=== PATIENT | female | born 1955 | race Two or more races ===

== ENCOUNTER 2024-05-15 11:12 | Emergency (ER) | payer MEDICARE, SELFPAY ==
[2024-05-15 11:12] VITALS: BMI 28.1
[2024-05-15 11:22] VITALS: BP 178/78; PULSE 54; RESP 18; TEMP 36.5; O2SAT 98; BMI 29.3
--- NOTE | 2024-05-15 12:16 | XR_ITS ---
Examination: AP chest single view Technique one AP portable upright chest single view Exam date and time: May 15, 2024 1231 hours Comparison August 28, 2023 INDICATIONS: Chronic hypertension shortness of breath today FINDINGS: Mild enlargement left ventricle No pneumonia or pulmonary edema Moderate osteopenia IMPRESSION: Mild enlargement left ventricle
--- NOTE | 2024-05-15 12:16 | XR_ITS ---
Examination: CT brain head without contrast. 2-D sagittal coronal reconstructions Date and time of exam:May 15, 2024 1346 hours INDICATIONS: Onset generalized head pain beginning today CTDI: vol (mGy):49.9 DLP: (mGycm):1074 Technique: Multiple CT axial sections of the brain have been obtained, 5 mm slice thickness. Contrast has not been administered. 2-D sagittal, coronal reconstructions have been obtained Low dose protocols were performed. One or more of the following dose reduction techniques were used; automated exposure control, adjustment of the mA and/or KV according to patient size, use of iterative reconstruction technique. Findings: No significant ventricular enlargement. Intra-axial or extra-axial hemorrhage density is not seen. No mass effect or midline shift Basal cisterns are not remarkable. Fourth ventricle is midline. Cranial vault intact. Impression: Negative for acute hemorrhage, mass effect or midline shift Advise clinical correlation follow-up accordingly
--- NOTE | 2024-05-15 12:19 | EDNOTE_ITS ---
ED General RME/HPI General Chief complaint: General Adult/Misc Complain Stated complaint: HTN Time Seen by Provider: 05/15/24 12:05 Arrival date/time: 05/15/24 11:12 RME / HPI RME / HPI narrative: 68-year-old female patient with significant history of hypertension, was brought in by family for evaluation regarding headache. Patient's been having headache since last night, associated with pain and numbness to the left side of the face and left eye twitching. Patient denies any slurring of speech denies any upper or lower extremity weakness. Patient also complained of elevated blood pressure, systolic above 180, and heart rate in the 40s. Denies any chest pain denies any other complaints or medications taken prior travel. Patient is ambulatory. Related Data Home Medications ?Medication ?Instructions ?Recorded ?Confirmed albuterol sulfate 90 mcg/actuation 2 puff inhalation Q6H PRN Wheezing 06/16/19 08/31/22 aerosol inhaler hydrochlorothiazide 12.5 mg tablet 12.5 mg PO QDAY 06/16/19 09/03/22 losartan 100 mg tablet 100 mg PO QDAY 06/16/19 09/03/22 lovastatin 40 mg tablet 40 mg PO QDAY 06/16/19 08/31/22 Previous Rx's ?Medication ?Instructions ?Recorded hydrocodone 10 mg-acetaminophen 1 tab PO Q6H PRN pain #28 tabs 09/03/22 325 mg tablet ibuprofen 800 mg tablet 800 mg PO Q8H #30 tabs 03/30/23 albuterol sulfate 90 mcg/actuation 2 puff inhalation Q6H PRN 05/20/23 aerosol inhaler (Ventolin HFA) shortness of breath or wheezing #8.5 grams benzonatate 100 mg capsule 100 mg PO TID #14 caps 05/20/23 Allergies Allergy/AdvReac Type Severity Reaction Status Date / Time sulfamethoxazole Allergy Swelling Verified 05/15/24 11:14 [From Bactrim] of Lip/Tongue/Throat trimethoprim [From Bactrim] Allergy Swelling Verified 05/15/24 11:14 of Lip/Tongue/Throat Review of Systems Review of Systems Narrative Review of Systems: Review of system reviewed and within normal limits except mentioned in HPI ED Exam Narrative Physical exam: VITAL SIGNS: Reviewed. GENERAL APPEARANCE: Alert and interactive, follows commands, no acute distress, HEAD AND FACE: Non-traumatic. ENT: PERRL, pink conjunctivitis, eyelid no trauma, Mucous membrane moist. NECK: Supple, nontender, no nuchal rigidity. CHEST: No tenderness, no crepitus, no paradoxical movement, no retractions. LUNGS: Clear, well ventilated, symmetric, no rales, no wheezing, no ronchi, no stridor, good breath sounds bilaterally. HEART: Regular rate, regular rhythm, no murmur, no gallops. ABDOMEN: Soft, positive bowel sounds, nondistended, no guarding, nontender, no rebound, no masses, RECTAL: Deferred. GENITAL: Deferred. NEUROLOGICAL: Gross motor function intact sensory function intact, Appropriate for age. MUSCULOSKELETAL: low back nontender, full range of motion. EXTREMITIES: Nontender, full range of motion. SKIN: Color pink, dry, no rash, no lacerations, no abrasions, no contusions. LYMPHATICS: Deferred. Course Quality Measures none Orders Category Date Time Status EKG (ED ONLY) *Do not use* NOW Care 05/15/24 12:[address] head/brain wo con Stat Exams 05/15/24 12:16 Completed EKG (ED Only) Stat Exams 05/15/24 12:19 Draft XR chest 1V Stat Exams 05/15/24 12:16 Completed B-Type Natriuretic Peptide Stat Lab 05/15/24 12:30 Completed CBC Stat Lab 05/15/24 12:30 Completed Comprehensive Metabolic Panel Stat Lab 05/15/24 12:30 Completed Partial Thromboplastin Time Stat Lab 05/15/24 12:30 Completed Troponin I Stat Lab 05/15/24 12:30 Completed Acetaminophen Tab [Tylenol ES Tab] Med 05/15/24 12:16 Discontinued 1,000 mg PO X1 ONE hydrALAZINE HCL [Apresoline] Med 05/15/24 14:07 Discontinued 50 mg PO X1 ONE Vital Signs Vital signs: Vital Signs Temperature 97.7 F 05/15/24 11:22 Pulse Rate 54 L 05/15/24 11:22 Respiratory Rate 18 05/15/24 11:22 Blood Pressure 178/78 H 05/15/24 11:22 Pulse Oximetry (%) 98 05/15/24 11:22 [facility] Patient data External records reviewed:: None Clinical information provided by:: patient and family Social determinants that could affect healthcare access:: none Patient has the following chronic illnesses:: Hypertension How is presenting disease/condition affected by chronic disease/condition?: e xacerbated by Evaluation data The following diagnostics were reviewed and interpreted by me:: lab results, radiology exam(s) and EKG tracing(s) Lab and/or radiology exams considered but not ordered:: None Interpretation Summary: EKG showed sinus bradycardia, ventricular rate of 45 bpm, ST segment elevation depression noted. Laboratory workup all came back normal troponin is normal CT scan head came unremarkable. I personally reviewed and interpreted the x-ray of this patient. There is no acute abnormalities found, no infiltrates no pneumothorax no hemothorax normal chest x-ray. Review of other structures was without significant abnormal findings also. I additionally reviewed the radiologist report and agree with the interpretation. Medications Medications considered but not ordered:: None Medication administrations:: Medication Administration History Discontinued Medications Acetaminophen (Acetaminophen 500 Mg Tablet) 1,000 mg PO X1 ONE Stop: 05/15/24 12:17 Last Admin: 05/15/24 12:38 Dose: 1,000 mg Documented By: EASTON Hydralazine HCl (Hydralazine Hcl 25 Mg Tablet) 50 mg PO X1 ONE Stop: 05/15/24 14:08 Last Admin: 05/15/24 14:27 Dose: 50 mg Documented By: XANDER Tylenol, hydralazine Consultations Consultation(s) initiated? (list below): No Diagnosis Differential Diagnosis ED Complaint MDM: Stress at home, hypertension, headache Most likely diagnosis given after review of the tests above:: Stress at home, hypertension Admission Indicated Admission indicated?: not indicated Explain why admission is indicated or not indicated:: None Admission Request Was there a request for admission?: No Disposition Plan Disposition Plan: Discharge Discharge Attestation Discharge Attestation: The patient and all family members were given an opportunity to ask questions and understood the discharge instructions. Discharge instructions specifically effects, indications for sooner follow up or return to the emergency department, and the expected course of current diagnosis. Patient condition: Stable Medical Decision Making MDM Narrative MDM Narrative: 68-year-old female patient with significant history of hypertension, was brought in by family for evaluation regarding headache. Patient's been having headache since last night, associated with pain and numbness to the left side of the face and left eye twitching. Patient denies any slurring of speech denies any upper or lower extremity weakness. Patient also complained of elevated blood pressure, systolic above 180, and heart rate in the 40s. Denies any chest pain denies any other complaints or medications taken prior travel. Patient is ambulatory. Patient's cardiac workup will came back normal, EKG also came back unremarkable except for sinus bradycardia, ventricular rate of 45 bpm, no ST segment elevation depression noted. CT scan of the head came back unremarkable chest x- ray came back unremarkable patient's received Tylenol and hydralazine in the emergency room, latest blood pressure was noted to be 165/54 heart rate of 78. Patient told me that her symptoms is totally gone. Differential Diagnosis Differential Diagnosis: Stress at home, hypertension, headache Lab Data 05/15/24 12:30 05/15/24 12:30 Labs: Lab Results 05/15/24 Range/Units 12:30 WBC 6.6 (3.6-11.0) Thou/mm3 RBC 3.99 L (4.00-5.20) Miln/mm3 Hgb 12.3 (12.0-16.0) g/dL Hct 37.2 (36.0-46.0) % MCV 93 (80-100) fL MCH 30.8 (25.0-35.0) pg MCHC 33.1 (31.0-37.0) g/dl RDW Std Deviation 43.0 (36.4-46.3) fL Plt Count 188 (140-440) Thou/mm3 Neut % (Auto) 50 (37-80) % Lymph % (Auto) 40 (10-50) % [place] % (Auto) 7 (0-12) % Eos % (Auto) 2 (0-10) % Baso % (Auto) 0 (0-2.5) % Neut # (Auto) 3.3 (1.8-7.7) Thou/mm3 Lymph # (Auto) 2.6 (1.0-4.8) Thou/mm3 [place] # (Auto) 0.5 (0.0-0.8) Thou/mm3 Eos # (Auto) 0.2 (0.0-0.5) Thou/mm3 Baso # (Auto) 0.0 (0.0-0.2) Thou/mm3 Immature Gran # (Auto) 0.01 H (0.00-0.00) Thou/mm3 Absolute Nucleated RBC 0.00 (0.00-0.00) Thou/mm3 Immature Gran % 0 (0-0) % Nucleated RBC % 0 (0) /100 WBC APTT 27.2 (22.0-36.0) Seconds Sodium 134 L (136-145) mMol/L Potassium 3.5 (3.4-5.1) mMol/L Chloride 102 (98-107) mMol/L Carbon Dioxide 26.8 (20.0-31.0) mMol/L Anion Gap 5 L (7-16) BUN 14 (9-23) mg/dL Creatinine 0.8 (0.6-1.3) mg/dL Estim Creat Clear Calc 68.4 (>60) mL/min eGFR > 60 (60 - ) See Note BUN/Creatinine Ratio 18 (12-20) Ratio Glucose 99 (74-106) mg/dL Calculated Osmolality 268 L (275-295) Calcium 9.4 (8.3-10.6) mg/dL Corrected Calcium 9.4 (8.5-10.1) mg/dL Total Bilirubin 0.5 (0.3-1.2) mg/dL AST 19 (0-34) U/L ALT 10 (10-49) U/L Alkaline Phosphatase 82 (46-116) U/L Troponin I < 0.002 (0.0-0.045) ng/mL B-Natriuretic Peptide 86 (0-100) pg/mL Total Protein 7.4 (5.7-8.2) gm/dL Albumin 4.5 (3.4-4.8) gm/dL Globulin 2.9 (2.3-3.5) gm/dL Albumin/Globulin Ratio 1.6 (1.2-2.2) Discharge Plan Plan Patient Disposition: HOME (Self Care) Disposition Comment: stable Prescriptions/Referrals Prescriptions/Med Rec: No Action lovastatin 40 mg Tablet 40 mg PO QDAY losartan 100 mg Tablet 100 mg PO QDAY hydrochlorothiazide 12.5 mg Tablet 12.5 mg PO QDAY albuterol sulfate 90 mcg/actuation Hfa Aerosol Inhaler 2 puff INHALATION Q6H PRN (Reason: Wheezing) hydrocodone-acetaminophen 10-325 mg tablet 1 tab PO Q6H MDD 4 PRN (Reason: pain) Qty: 28 0RF ibuprofen 800 mg tablet 800 mg PO Q8H Qty: 30 0RF benzonatate 100 mg capsule 100 mg PO TID Qty: 14 0RF albuterol sulfate [Ventolin HFA] 90 mcg/actuation HFA aerosol inhaler 2 puff inhalation Q6H PRN (Reason: shortness of breath or wheezing) Qty: 8.5 0RF Referrals: Orville Montes De Oca MD [Primary Care Provider] - In 1 week Problem List Clinical Impression: Stress at home, HTN (hypertension) Patient/Caregiver Discharge Instructions Discharge Activity: activity as tolerated Education Materials: ED High Blood Pressure ... Additional Instructions: Thank you for the opportunity for serving you today. You are stable for discharged . You are advised to: Follow-up with your PCP in 1 to 2 days Return to ED for worsening of symptoms Increase oral fluids Continue taking your blood pressure medication You may take [id number] Tylenol as needed Print Language: Moldovan Stand Alone Forms: Huyen Award Info., Work/School Release, Patient Portal Info Letter
--- NOTE | 2024-05-15 12:19 | EKG_ITS ---
[facility] Test Date: 2024-05-15 Pat Name: ALESSIA HANSEN Department: Room: - Gender: Female Meter Changes Records Clerk: : [id number] Requested By: Marisel Enriquez Order Number: [id number] Reading MD: Marisel Enriquez Measurements Intervals [place] Rate: 45 P: 37 KS: 162 QRS: 15 QRSD: 112 T: 32 QT: 488 QTc: 424 Interpretive Statements SINUS BRADYCARDIA MODERATE INTRAVENTRICULAR CONDUCTION DELAY [110+ ms QRS DURATION] NONSPECIFIC T-WAVE ABNORMALITY Compared to ECG 08/31/2022 12:43:29 Intraventricular conduction delay now present T-wave abnormality now present Sinus rhythm no longer present /store/S0/[id number]/ecg/[id number].pdf
[2024-05-15] MEDS: ACETAMINOPHEN 500 MG TABLET 1000 MG PO (12:38)
[2024-05-15 12:46] LABS: Basophils % (Auto) 0 % (0-2.5); Eosinophils # (Auto) 0.2 Thou/mm3 (0.0-0.5); Eosinophils % (Auto) 2 % (0-10); Hematocrit 37.2 % (36.0-46.0); Hemoglobin 12.3 g/dL (12.0-16.0); Immature Granulocytes % (Auto) 0 % (0-0); Immature Granulocytes Auto 0.01 Thou/mm3 (0.00-0.00); Lymphocytes # (Auto) 2.6 Thou/mm3 (1.0-4.8); Lymphocytes % (Auto) 40 % (10-50); Mean Corpuscular HGB Conc 33.1 g/dl (31.0-37.0); Mean Corpuscular Hemoglobin 30.8 pg (25.0-35.0); Mean Corpuscular Volume 93 fL (80-100); Monocytes # (Auto) 0.5 Thou/mm3 (0.0-0.8); Monocytes % (Auto) 7 % (0-12); Neutrophils # (Auto) 3.3 Thou/mm3 (1.8-7.7); Neutrophils % (Auto) 50 % (37-80); Nucleated Red Blood Cell % 0 /100 WBC (0); Platelet Count 188 Thou/mm3 (140-440); Red Blood Count 3.99 Miln/mm3 (4.00-5.20); White Blood Count 6.6 Thou/mm3 (3.6-11.0)
[2024-05-15 12:59] LABS: Partial Thromboplastin Time 27.2 Seconds (22.0-36.0)
[2024-05-15 13:08] LABS: Alanine Aminotransferase 10 U/L (10-49); Albumin, Serum 4.5 gm/dL (3.4-4.8); Albumin/Globulin Ratio 1.6 (1.2-2.2); Alkaline Phosphatase 82 U/L (46-116); Anion Gap 5 (7-16); Aspartate Amino Transferase 19 U/L (0-34); BUN/Creatinine Ratio 18 Ratio (12-20); Bilirubin,Total 0.5 mg/dL (0.3-1.2); Blood Urea Nitrogen 14 mg/dL (9-23); Calcium 9.4 mg/dL (8.3-10.6); Calcium (Corrected) 9.4 mg/dL (8.5-10.1); Carbon Dioxide 26.8 mMol/L (20.0-31.0); Chloride 102 mMol/L (98-107); Creatinine (Component) 0.8 mg/dL (0.6-1.3); Estimated Creatinine Clearance 68.4 mL/min (>60); Globulin 2.9 gm/dL (2.3-3.5); Glucose 99 mg/dL (74-106); Osmolality,Calculated 268 (275-295); Potassium 3.5 mMol/L (3.4-5.1); Sodium 134 mMol/L (136-145); Total Protein 7.4 gm/dL (5.7-8.2); Troponin I < 0.002 ng/mL (0.0-0.045); eGFR > 60 See Note
[2024-05-15 13:13] LABS: B-Type Natriuretic Peptide 86 pg/mL (0-100)
[2024-05-15 14:02] VITALS: BP 182/69; PULSE 43; RESP 14; TEMP 36.7; O2SAT 100
[2024-05-15 14:27] VITALS: BP 182/69; PULSE 78
[2024-05-15] MEDS: hydrALAZINE HCL 25 MG TABLET 50 MG PO (14:27)
[2024-05-15 15:26] VITALS: BP 158/76; PULSE 46; RESP 21; O2SAT 97
== END 2024-05-15 15:26 | disposition home or self-care (01) ==
PROVIDERS: Nurse Practitioner Family; Emergency Provider Emergency Medicine; PCP Family Medicine
DX: I10 Essential (primary) hypertension (principal); Z73.3 Stress, not elsewhere classified; R00.1 Bradycardia, unspecified
CPT/HCPCS: 36415; 70450; 71045; 80053; 81001; 83880; 84484; 85025; 85730; 93005; 99284; A9270

== ENCOUNTER → 2025-01-12 | Outpatient (CLI) | payer MEDICARE, SELFPAY ==
--- NOTE | 2025-01-12 14:30 | XR_ITS ---
Examination: MRI brain without intravenous contrast. Date and time of exam: January 122024, 1850 hours INDICATIONS: Increasing memory loss 2 years with frontal headaches Technique: Multiple axial and sagittal images of the brain obtained. Siemens high-resolution 1.5 [employer]iva short bore scanners utilized. Sagittal sections, T1-weighted, TR 500, TE 14, are performed. Axial sections proton-density and T2-weighted have been obtained. Inversion recovery axial images, TR 9, 260, TE 111, TI 2500. Diffusion weighted images, axial sections, TR 4800, TE 128, B value 1000 Axial sections, ADC map, TR 4800, TE 128 Findings: Enlargement of the sella turcica is not present. The optic chiasm and infundibular are not remarkable. Prepontine and interpeduncular cisterns are not enlarged. There is no localized enlargement of the medulla or dolores. Fourth ventricle and cerebellar tonsils appear normal in position. No subacute area of hemorrhage density is seen. Mass in the cerebellopontine angle region is not evident. Globes symmetrical. Orbital musculature including medial lateral rectus muscles do not exhibit abnormality. Diffusion-weighted images demonstrate no focus of restricted diffusion. Increased white matter signal moderate Mass effect upon the ventricular system is not identified. Impression: Negative for acute hemorrhage mass effect or midline shift No acute infarct Moderate chronic microvascular white matter change. Moderate chronic frontal ethmoid sinusitis Bilateral mastoiditis
== END | disposition home or self-care (01) ==
LOC: SMRI 14:56
PROVIDERS: Referring Provider Psychiatry & Neurology Neurology; Visit Provider Psychiatry & Neurology Neurology
DX: R90.82 White matter disease, unspecified (principal); J32.8 Other chronic sinusitis; H70.93 Unspecified mastoiditis, bilateral
CPT/HCPCS: 70551

== ENCOUNTER → 2025-04-22 | Outpatient (CLI) | payer MEDICARE, SELFPAY ==
--- NOTE | 2025-04-22 14:14 | RESP.EEG ---
EEG complete and ready to read
== END | disposition home or self-care (01) ==
LOC: SRTX 13:04
PROVIDERS: PCP Nurse Practitioner Family; Referring Provider Psychiatry & Neurology Neurology; Visit Provider Psychiatry & Neurology Neurology
DX: R94.01 Abnormal electroencephalogram [EEG] (principal)
CPT/HCPCS: 95816